=== PATIENT | female | born 1970 | race Caucasian/White ===

== ENCOUNTER 2019-06-19 06:18 | Day surgery (SDC) | payer OTHER, SELFPAY ==
[2019-06-17 08:14] VITALS: BMI 20.1
[2019-06-19] VITALS (15 sets, daily range): BP systolic 125–160; BP diastolic 68–96; PULSE 59–83; RESP 6–17; TEMP 36.3–37; O2SAT 15–100; BMI 18.8
--- NOTE | 2019-06-19 | DI.RAD.S_ITS ---
PROCEDURE: XR CERVICAL SPINE 2V OR 3V INDICATIONS: C5-6, C6-7 ACDF(MOBI-C) TECHNIQUE: 2 view(s) of the cervical spine were acquired. COMPARISON: [facility], , XR CERVICAL SPINE 2 OR 3 VIEWS, 12/23/2018, 9:09. FINDINGS: Spot fluoroscopic intraoperative images demonstrating 2 level prosthetic discs, at C5-C6 and C6-C7. There is expected intraoperative alignment. Dictated by: Juan Rodarte M.D. on 06/19/2019 at 15:07 Approved by: Juan Rodarte M.D. on 06/20/2019 at 9:56
--- NOTE | 2019-06-19 07:18 | PM.PREOP ---
Pre-operative Note Interval Note History & Physical reviewed/Exam performed by Physician: Yes Changes to H&P: No
[2019-06-19] MEDS: LACTATED RINGERS 1,000 ML 42 ML IV ×2 (07:22→09:03)
[2019-06-19] MEDS: CEFAZOLIN 2 GM/100 ML FROZ.PIGGY IV (07:45)
--- NOTE | 2019-06-19 08:14 | SUR.OPER ---
Supine on padded OR bed, head on pillow, towel between shoulders, arms padded and tucked at side, legs uncrossed, safety belt at thigh, tape over blanket over lower legs .
[2019-06-19] MEDS: BUPIVACAINE 0.25% W/ EPI 30 ML VIAL 60 ML INJ (08:23)
[2019-06-19] MEDS: SODIUM CHLORIDE 0.9% 1,000 ML, GENTAMICIN 80 MG IRR (08:23)
[2019-06-19] MEDS: THROMBIN (RECOMBINANT) 5,000 UNIT VIAL 5000 UNIT TOP (08:23)
--- NOTE | 2019-06-19 09:05 | PM.OP.1 ---
Operative Date/Time/Diagnoses Date of procedure: 06/19/19 Time of procedure: 09:05 Pre-op diagnosis: Cervical disc herniation with radiculopathy Post-op diagnosis: same Procedure & Clinicians Procedure: C5-6, C6-7 anterior diskectomy an artificial disc replacement Use of microscope Same procedure as scheduled: Yes Indications: [age] year old female with intractable pain from cervical disc herniations. They had failed conservative management and requested operative intervention. Risks and benefits of surgery were discussed and appropriate consents were obtained. Surgeon: Jorje Yang Heel Burnisher: Mony Wang Anesthesia Type: General Operative Notes Findings: None Closure Type: primary Specimen(s): none sent Prosthetic devices, grafts, tissues, transplants, or devices: Skyler Mobi-C Estimated Blood Loss (mL): 2 Blood products transfused: none Procedure in detail: Patient was brought to the operating room and intubated on the table. A time-out was performed. Preoperative antibiotics were given. The neck was prepped and draped in the standard sterile fashion. Using a skin fold, we made a 3 cm oblique incision on the left side. We used Bovie to go through the platysma and then did a standard anterolateral blunt dissection down to the precervical fascia. Fascia was nicked and elevated up. A marker was placed and x-ray was taken for localization. We then subperiosteally elevated up the longus colli muscles. Self-retaining retractors were placed. Madison pins were placed under x-ray guidance to be parallel to the endplates. We then brought in the microscope. A scalpel used to perform an annulotomy. We then used a combination of pituitaries and curettes and Kerrison to perform a complete anterior diskectomy at C5-6. We took down the PLL and used Kerrison to remove any posterior disc material and osteophytes. At the end we could from the nerve hook cephalad caudally and out the foramen and everything was opened. We distracted open with the parallel day habilitation specialist. We then used the horseshoes for sizing. We then used the trials. We then inserted a 15 x 15 x 5 mm size Mobi-C artificial disc replacement under fluoroscopic guidance for positioning. The traction was released and x-ray was checked again. We then went down to C6-7. We took the Madison pins down to this level. We performed a complete diskectomy with scalpel, pituitaries, curettes, and Kerrisons. We took down the PLL then removed the posterior disc material and checked with a nerve hook. We then trialed and placed a 17 x 15 x 5 mm size Mobi-C ADR using fluoroscopic guidance. The self-retaining retractors and Madison pins were removed and final x-rays taken. The wound was irrigated. There was no bleeding. The carotid was beating nicely. The platysma was closed. The superficial was closed. The skin was closed. A sterile dressing was placed. They were then extubated and brought to recovery room with no complications. Complications: none Post-operative Condition: stable Disposition: PACU Plan for aftercare: Overnight admission. Plan to discharge tomorrow.
[2019-06-19] MEDS: MIDAZOLAM 2 MG/2 ML VIAL IV (09:16)
[2019-06-19] MEDS: fentaNYL 100 MCG/2 ML INJ 50 MCG IV ×2 (09:31→09:50)
[2019-06-19] MEDS: OXYCODONE/ACETAMINOPHEN 5/325 TABLET 1 TAB PO ×2 (10:04→10:24)
--- NOTE | 2019-06-19 10:52 | SUR.PHASEI ---
Pt transported to with CORIE Lees. Update given to Felicity Collier RN. VSS, pain rated 6\10, pt tolerting fluids w/o issues. Pt in stable condition upon this RN leaving the room. Family notified of her room number and current condition.
[2019-06-19] MEDS: diazePAM 5 MG TABLET PO (13:55)
[2019-06-19] MEDS: INFLUENZA VACCINE 0.5 ML SYRINGE IM (13:55)
[2019-06-19] MEDS: LACTATED RINGERS 1,000 ML 125 ML IV (13:58)
[2019-06-19] MEDS: OXYCODONE/ACETAMINOPHEN 5/325 TABLET 2 TAB PO (14:36)
--- NOTE | 2019-06-19 14:38 | PC.NURSE ---
Patient resting in bed watching TV with at bedside. A/Ox3, using IS, lung sounds clear, patient denies SOB, pt reports pain at a 7. Pain medication administered per MAR. Patient is prepared to work with PT. LR infusing at 125 mls/hr per orders. IV site is CDI in left AC. Incision is CDI, neck brace is in place. Patient is drinking fluids. Patient denies further needs at this time.
--- NOTE | 2019-06-19 15:07 | PM.PNPO.1 ---
Subjective Subjective Date Patient Seen: 06/19/19 Time Patient Seen: 15:07 Interval history: She is doing much better. Pain is under very good control. Up and moving around well with therapy. No difficulty swallowing. Exam Vital Signs (past 8 hours): - 06/19/19 09:11 06/19/19 09:16 06/19/19 09:21 Temperature 97.3 F L Pulse Rate 74 71 63 Respiratory Rate 17 11 L 13 Blood Pressure 141/85 H 139/91 H 134/91 H Pulse Oximetry 15 L 98 97 06/19/19 09:26 06/19/19 09:31 06/19/19 09:36 Temperature Pulse Rate 63 70 77 Respiratory Rate 7 L 13 6 L Blood Pressure 141/76 H 152/96 H 154/90 H Pulse Oximetry 100 97 94 06/19/19 09:41 06/19/19 09:47 06/19/19 10:06 Temperature Pulse Rate 59 L 60 74 Respiratory Rate 11 L 8 L 13 Blood Pressure 140/90 140/85 160/82 H Pulse Oximetry 98 97 97 06/19/19 10:26 06/19/19 10:35 06/19/19 11:05 Temperature 98.3 F 98.5 F Pulse Rate 66 68 67 Respiratory Rate 7 L 14 16 Blood Pressure 138/86 148/80 H 132/85 Pulse Oximetry 98 97 98 06/19/19 11:35 06/19/19 12:35 Temperature 98.3 F Pulse Rate 69 83 Respiratory Rate 14 14 Blood Pressure 130/82 147/80 H Pulse Oximetry 98 98 Oxygen Delivery Method Room Air Oxygen Flow Rate 0 Back/Spine/Pelvis Other: CDI. 5/5 motor both upper extremities Assessment & Plan Post-op Postoperative Procedures: Procedures Operation Date: 06/19/19 07:45 Actual Procedures Side Surgeon p c56 and c67 anterior discectomy and artificial disc replacement Jorje Yang MD she is doing great. She was to go home. Okay for discharge Quality VTE Deep Vein Thrombosis/Pulmonary Embolism Present on Admission: No
--- NOTE | 2019-06-19 15:50 | PT.IIE ---
Current Diagnoses Other cervical disc displacement, unspecified cervical region (06/19/19) Strain of muscle, fascia and tendon at neck level, subsequent encounter (06/19/19) Surgery Performed Operation Date: 06/19/19 07:45 Actual Procedures p c56 and c67 anterior discectomy and artificial disc replacement - Jorje Yang MD Surgical History (Last Updated 06/17/19 @ 08:24 by Zaira Saunders RN) History of carpal tunnel surgery (Acute ~1994) Medical History (Last Updated 06/17/19 @ 08:23 by Zaira Saunders RN) Anxiety (Acute) Cervical radiculopathy (Acute) Dizziness (Acute) Dysthymic disorder (Acute) Environmental allergies (Acute) Fatigue (Acute) Headache (Acute) HLD (hyperlipidemia) (Acute) Insomnia (Acute) Itchy skin (Acute) Major depressive disorder, single episode (Acute) Nausea & vomiting (Acute) Neck pain (Acute) Night sweats (Acute) Numbness (Acute) Panic disorder without agoraphobia (Acute) Rosacea (Acute) Thyroiditis (Acute) Physical Therapy Inpatient Evaluation/Re-Eval M1 PT/OT-IP Prior Functional Status Start: 06/19/19 12:13 Freq: NEEDED Status: Active Protocol: Document 06/19/19 15:33 AW (Rec: 06/19/19 15:50 AW [id number]) Medical Review Prior Functional Status Medical History Reviewed Yes Communication No known deficits Mobility and Gait Pt was independent with all functional mobility with no need for assistive device. She is accustomed to walking her dogs twice per day with no limitation in ambulation distance. Activities of Daily Living and IADL's Independent Social History Household Members spouse,children Living Arrangements House Number of Floors (Floors) One Floor Number of Stairs To Enter/Railing? 1 CLAUDIO, no railing Home Environment High Toilet,Tub/Shower Employment Status Unemployed Additional Social History Comment Pt lives with supportive spouse and 20 yo son, at least one of whom will be available to assist at all times for the next week. Her sister is also coming to visit tomorrow. M2 PT-IP Current Condition Start: 06/19/19 12:13 Freq: NEEDED Status: Active Protocol: Document 06/19/19 15:33 AW (Rec: 06/19/19 15:50 AW [id number]) Physical Therapy Current Condition Current Condition Evaluation Date 06/19/19 Treatment Diagnosis s/p ADCF, difficulty in walking Onset Date 06/19/19 Precautions Cervical Spine Precautions Soft Collar for Comfort,No Heavy Lifting,Log Roll Brace soft collar Weight Bearing Status Weight Bearing Status Full Weight Bearing M3 PT-IP Subjective Start: 06/19/19 12:13 Freq: NEEDED Status: Active Protocol: Document 06/19/19 15:33 AW (Rec: 06/19/19 15:50 AW [id number]) Subjective Physical Therapy Visit Type Type Initial Evaluation Visit Start Time 14:50 Visit Stop Time 15:12 Total Visit Minutes 22 Notes Spouse at bedside during evaluation Number of SOFTWARE TESTER Visits 0 Physical Therapy Visit Comments Patient Comments Pain has decreased with oral medication. Pt would like to get up with PT Patient Goals Pt hopes to discharge home with spouse/family support today if possible Therapy Pain Assessment Pain When Pain Assessed During Mobility Pain Present Pain Present Pain Reported Location neck Intensity 6 Scale Used Numeric (1 - 10) Pain Management Techniques Timing of Activity with Medications M4 PT-IP Mobility and Gait Start: 06/19/19 12:13 Freq: NEEDED Status: Active Protocol: Document 06/19/19 15:33 AW (Rec: 06/19/19 15:50 AW [id number]) PT-Bed Mobility Assessment Rolling Type of Rolling Log Rolling Level of Assist Standby Assistance Supine to Sit Supine to Sit Standby Assistance Scooting Scooting to Edge of Bed Standby Assistance PT-Transfer Assessment Sit to and From Stand Sit to and from Stand Standby Assistance Equipment Transfer Assistive Device Gait Belt Orthotic/Prosthetic Devices or Brace: Yes Transfers Transfer Destination Chair Transfer Technique pt ambulated SBA Transfer Ability Level of Assist Standby Assistance Comments Mobility Comments Pt required no more than SBA for bed mobility and transfers Gait Assessment Gait Gait Assistance Required: Standby Assistance Distance (Feet) 150 Able to Maintain Weight Bearing Status Yes During Gait Assistive Devices Assistive Device Gait Belt Orthotic/Prosthetic Devices or Brace: Yes Gait Deviations General Gait Pattern Within Normal Limits Factors Limiting Gait Function Factors Limiting Gait Function Pain Comments Gait Comments Pt ambulated 150 feet without device SBA. She demonstrated good awareness of cervical precautions during mobility. PT-Balance Assessment Sitting Balance and Reactions Static Sitting Balance Ability Normal Dynamic Sitting Balance Ability Normal Standing Balance and Reactions Static Standing Balance Ability Normal Dynamic Standing Balance Ability Normal Device Used none M5 PT-IP Objective Assessments Start: 10/03/19 12:13 Freq: NEEDED Status: Active Protocol: Document 06/19/19 15:33 AW (Rec: 06/19/19 15:50 AW [id number]) Orientation Orientation/Cognition Level of Alertness Alert Orientation Name,Date,Place,Situation Language Function Ability No Deficits Noted Safety Awareness Understands Safety Issues Memory Description No Deficits Noted Gross Range of Motion Upper Extremity ROM Assessment Within Functional Limits Lower Extremity ROM Assessment Within Functional Limits Strength Upper Extremity Strength Assessment Within Functional Limits Lower Extremity Strength Assessment Within Functional Limits Comments Strength Comments Grossly 5/5 in all extremities Coordination Assessment Gross Coordination Gross Coordination WNL Sensation Assessment Sensation Gross Sensation WNL M6 PT-IP Treatment Start: 06/19/19 12:13 Freq: NEEDED Status: Active Protocol: Document 06/19/19 15:33 AW (Rec: 06/19/19 15:50 AW [id number]) Physical Therapy Treatment Education Education Provided Precautions,Weight Bearing Status,Post-Op Packet,Safety Brace Education [place],Patient, Caregiver Other Treatments Other Treatment Performed Pt and spouse comfortable donning and doffing soft collar. PT provided education on plan of care, post-op precautions, and safety. Also provided handout on safe swallow following neck surgery , including events that should prompt a call to the surgeon. M7 PT-IP Assessment and Plan Start: 06/19/19 12:13 Freq: NEEDED Status: Active Protocol: Document 06/19/19 15:33 AW (Rec: 06/19/19 15:50 AW [id number]) PT Summary Assessment and Plan Potential Rehabilitation Potential Excellent Status of Condition at Evaluation Evolving Summary Impairments Pain Assessment Summary Pt is a 48 yo woman seen on POD0 following ACDF. PLOF: Independent with all functional mobility and ADL's. CLOF: Pt required no more than SBA for all mobility and was able to teach back cervical precautions. She was provided education on safe swallow following surgery. Pain is her main limitation at this evaluation. She is safe to discharge home with family support when cleared medically . Goals Bed Mobility Goal Independent Transfer Goal Independent Gait Goal Independent Gait Distance 500 Other Goals up/down 1 step with no rail SBA Frequency of Treatment Frequency Of Treatment Twice a Day Treatment Plan Physical Therapy Treatment Plan Gait Training,Post Op Education,Discharge Planning Recommendations To Nursing Amount of Assist Needed Standby Assistance Discharge Recommendations PT Discharge Recommendations Home with Assistance, Outpatient PT
== END 2019-06-19 16:34 | disposition home or self-care (01) ==
LOC: OR 06:20 → AC 10:46
PROVIDERS: PCP Family Medicine; Visit Provider Orthopaedic Surgery
PROC: (CPT 22856; principal; 2019-06-19 07:45)
DX: M50.122 Cervical disc disorder at C5-C6 level with radiculopathy (principal); F17.210 Nicotine dependence, cigarettes, uncomplicated; F41.9 Anxiety disorder, unspecified; Z23 Encounter for immunization
CPT/HCPCS: 22856; 22858; 72040; 76000; 90471; 90656; 97161; C1776; J0330; J0690; J1100; J1170; J2250; J2405; J2704; J3010; Q2038

== ENCOUNTER → 2019-09-16 10:40 | Outpatient (CLI) | payer OTHER, SELFPAY ==
[2019-06-19 11:35] VITALS: BMI 18.8
--- NOTE | 2019-09-16 11:03 | DI.CT.S_ITS ---
PROCEDURE: CT CERVICAL SPINE WO CON INDICATIONS: Other cervical disc displacement, unspecified cerv TECHNIQUE: Noncontrast 3 mm thick sections acquired from the skull base to the T4 level. Sagittal and coronal reformats were then constructed. For radiation dose reduction, the following was used: automated exposure control, adjustment of mA and/or kV according to patient size. COMPARISON: [facility], CR, XR CERVICAL SPINE 2V OR 3V, 06/19/2019, 8:36. FINDINGS: Image quality: There is streak artifact associated with the cervical hardware. Bones: No fractures or dislocations. Visualized superior ribs are intact. Artificial discs are seen at the C5-C6 and C6-C7 levels, with associated streak artifact. No milton postoperative complication can be seen. The disc heights otherwise appear well-preserved. There is straightening of the normal cervical lordosis. No focal AP alignment abnormality is seen. There is mild S. shaped scoliotic curvature seen. Soft tissues: Prevertebral soft tissues are normal in thickness. No paravertebral hematomas. No apical pneumothoraces. IMPRESSION: Unremarkable postoperative change at C5-C6 and C6-C7, with artificial discs. Mild S-shaped scoliotic curvature. Dictated by: Jeff Crawford M.D. on 09/16/2019 at 10:23 Approved by: Jeff Crawford M.D. on 09/16/2019 at 10:25
== END ==
PROVIDERS: PCP Family Medicine; Visit Provider Orthopaedic Surgery
DX: M50.20 Other cervical disc displacement, unspecified cervical region (principal); M41.9 Scoliosis, unspecified; Z98.890 Other specified postprocedural states
CPT/HCPCS: 72125

== ENCOUNTER → 2021-01-18 09:39 | Outpatient (CLI) | payer OTHER, SELFPAY ==
[2019-06-19 11:35] VITALS: BMI 18.8
--- NOTE | 2021-01-18 09:42 | DI.MRI.S_ITS ---
PROCEDURE: MR CERVICAL SPINE WO CON INDICATIONS: Other cervical disc displacement TECHNIQUE: Noncontrast sagittal T1 spin echo and T2 fast spin echo, sagittal STIR, foraminal oblique sagittal T2 fast spin echo, and axial gradient echo or T2 fast spin echo through the cervical spine. COMPARISON: [facility], CT, CT CERVICAL SPINE WO CON, 09/16/2019, 10:49. [facility], MR, MR CERVICAL SPINE WITHOUT CONTRAST, 11/27/2018, 10:23. FINDINGS: Image quality: Susceptibility artifact obscuring fine detail evaluation at the levels of C5-6 and C6-7 is noted. Alignment and Curvature: Surgical hardware most suggestive prosthetic discs are present at C5-6 and C6-7. There is trace anterolisthesis C4 on C5. Bone Marrow: Marrow demonstrates normal overall signal. Spinal Cord: Visualized spinal cord has normal size and signal. No cerebellar tonsillar herniation. Paraspinous Soft Tissues: No paravertebral masses. Prevertebral soft tissues are normal in thickness. Increased T2 signal is present within the mastoid air cells to a mild degree bilaterally. C2-C3: No disc bulge, spinal stenosis or foraminal narrowing. No appreciable interval change. C3-C4: No disc bulge, spinal stenosis or foraminal narrowing. No appreciable interval change. C4-C5: Mild disc bulge with minimal canal narrowing. No foraminal narrowing. C5-C6: Postsurgical change and artifact from disc prosthesis is present. There is likely at least a mild degree of spinal stenosis. Foramina are partially obscured. There may be minimal to mild foraminal narrowing. These appear relatively unchanged. C6-C7: Postsurgical change in artifact from disc prosthesis is present. There is likely at least a mild degree of spinal stenosis as well as mild left and atot-by-[id number] right foraminal narrowing. These appear relatively unchanged. C7-T1: No disc bulge, spinal stenosis or foraminal narrowing. IMPRESSION: 1. Postsurgical changes as above. 2. Likely at least mild spinal stenosis at C5-6 and C6-7 as well as foraminal narrowing as above. Taking into account artifact in visualization, appearance appears relatively stable compared to 11/27/2018 and 09/16/2019. Dictated by: Deanna Mathis M.D. on 01/18/2021 at 12:35 Approved by: Deanna Mathis M.D. on 01/18/2021 at 12:46
== END ==
PROVIDERS: PCP Internal Medicine; Referring Provider Physical Medicine & Rehabilitation Pain Medicine; Visit Provider Physical Medicine & Rehabilitation Pain Medicine
DX: M50.20 Other cervical disc displacement, unspecified cervical region (principal); M48.02 Spinal stenosis, cervical region
CPT/HCPCS: 72141